=== PATIENT | female | born 1990 | race Two or more races ===

== ENCOUNTER 2021-05-09 21:02 | Emergency (ER) | payer MEDICAID ==
--- NOTE | 2021-05-09 23:00 | EDM.PDOC ---
ED HPI GENERAL MEDICAL PROBLEM - General Chief Complaint: General Stated Complaint: INTOXICATED Time Seen by Provider: 05/09/21 21:40 Source of Information: Reports: Patient History Limitations: Reports: Intoxication - History of Present Illness INITIAL COMMENTS - FREE TEXT/NARRATIVE: c/o alc intox pt comes in via EMS and is worried that her hgb is low, it had been 3 in the [facility] and she said she had a scope done her hgb is 10 tonight and she requested an iron tab she says she stopped alcohol for 11.5 months after inpt tx but started drinking again in November works for [employer], duties include dental receptionist work, not working tomorrow, lives with her 3 yo daughter, her mother is watching her daughter tonight - Related Data Allergies Allergy/AdvReac Type Severity Reaction Status Date / Time No Known Allergies Allergy Verified 05/09/21 21:21 Home Meds: Home Meds Ferrous Sulfate [Iron] 325 mg PO DAILY #30 tablet 05/09/21 [Rx] Potassium Chloride 20 meq PO BID #6 tablet.er 05/09/21 [Rx] Past Medical History Gastrointestinal History: Reports: GERD - Infectious Disease History Infectious Disease History: Reports: Hepatitis C Social & Family History - Tobacco Use Tobacco Use Status *Q: Current Every Day Tobacco User Years of Tobacco use: 1 Packs/Tins Daily: 0.2 - Caffeine Use Caffeine Use: Reports: None ED ROS GENERAL - Review of Systems Review Of Systems: See Below Constitutional: Reports: No Symptoms HEENT: Reports: No Symptoms Respiratory: Reports: No Symptoms Cardiovascular: Reports: No Symptoms Endocrine: Reports: No Symptoms GI/Abdominal: Reports: No Symptoms : Reports: No Symptoms Musculoskeletal: Reports: No Symptoms Skin: Reports: No Symptoms Neurological: Reports: No Symptoms Psychiatric: Reports: Anxiety Hematologic/Lymphatic: Reports: No Symptoms Immunologic: Reports: No Symptoms ED EXAM, GENERAL - Physical Exam Exam: See Below Exam Limited By: Other (sits up in bed, talks in complete sentences, answer questions appropriately, mildly anxious) General Appearance: Alert, Anxious Ears: Hearing Grossly Normal Nose: Normal Inspection Throat/Mouth: Normal Inspection, Normal Voice, No Airway Compromise Head: Atraumatic, Normocephalic Neck: Normal Inspection, Supple, Non-Tender, Full Range of Motion. No: Lymphadenopathy (R), Lymphadenopathy (L) Respiratory/Chest: No Respiratory Distress, Lungs Clear, Normal Breath Sounds, No Accessory Muscle Use, Chest Non-Tender Cardiovascular: Regular Rate, Rhythm, No Edema, No Gallop, No Murmur, No Rub GI/Abdominal: Soft, Non-Tender, No Distention Back Exam: Normal Inspection, Full Range of Motion, NT Extremities: Normal Inspection, Normal Range of Motion, Non-Tender, No Pedal Edema Neurological: Alert, Oriented, CN II-XII Intact, No Motor/Sensory Deficits Psychiatric: Anxious Skin Exam: Warm, Dry, Intact, Normal Color, No Rash Lymphatic: No Adenopathy Course - Vital Signs Last Recorded V/S: Last Vital Signs Temp 37.1 C 05/09/21 21:04 Pulse 97 05/09/21 21:04 Resp 18 05/09/21 21:04 BP 138/88 05/09/21 21:04 Pulse Ox 100 05/09/21 21:04 - Orders/Labs/Meds Labs: Laboratory Tests 05/09/21 05/09/21 05/09/21 Range/Units 21:30 21:30 21:30 WBC 4.0 (3.0-10.3) x10-3/uL RBC 3.53 L (3.60-5.20) x10(6)uL Hgb 10.7 L (11.4-15.5) g/dL Hct 33.4 L (34.2-48.2) % MCV 94.6 (76.7-100.5) fL MCH 30.2 (23.9-33.9) pg MCHC 31.9 (31.9-34.8) g/dL RDW 15.9 (12.3-16.5) % Plt Count 249 (151-488) x10(3)uL MPV 7.5 (7.1-12.4) fL Neut % (Auto) 42.5 (30.8-76.2) % Lymph % (Auto) 44.2 (18.4-52.1) % Jones % (Auto) 10.1 (4.4-15.7) % Eos % (Auto) 0.6 (0.6-8.1) % Baso % (Auto) 2.6 H (0.2-1.5) % Neut # (Auto) 1.7 (1.5-6.3) x10-3/uL Lymph # (Auto) 1.8 (1.0-4.4) x10-3/uL Jones # (Auto) 0.4 (0.3-1.0) x10-3/uL Eos # (Auto) 0.0 (0.0-0.8) x10-3/uL Baso # (Auto) 0.1 (0.0-0.1) x10-3/uL Sodium 139 (135-145) mmol/L Potassium 3.2 L (3.5-5.3) mmol/L Chloride 101 (100-110) mmol/L Carbon Dioxide 27 (21-32) mmol/L BUN 8 (7-18) mg/dL Creatinine 0.6 (0.55-1.02) mg/dL Est Cr Clr Drug Dosing TNP Estimated GFR (MDRD) > 60 (>60) BUN/Creatinine Ratio 13.3 (9-20) Glucose 85 (80-116) mg/dL Calcium 8.2 L (8.6-10.2) mg/dL Total Bilirubin 0.7 (0.1-1.3) mg/dL AST 577 H* (5-25) IU/L ALT 133 H (12-36) U/L Alkaline Phosphatase 349 H (56-112) IU/L Total Protein 7.9 (6.0-8.0) g/dL Albumin 3.7 (3.5-5.2) g/dL Globulin 4.2 g/dL Albumin/Globulin Ratio 0.9 Ethyl Alcohol 0.43 H* (<0.03) % - Re-Assessments/Exams Free Text/Narrative Re-Assessment/Exam: 05/09/21 23:08 pt requesting IVFs altho not indicated to lower alcohol level pt told her alc level is 430 and that her LFTs are markedly inc'd she does appear interested in tx Departure - Departure Time of Disposition: 22:55 Disposition: Home, Self-Care 01 Condition: Fair Clinical Impression: Acute alcohol intoxication, Normochromic normocytic anemia, Hypokalemia, Alcoholic hepatitis, Hepatitis C infection, Alcohol use disorder - Discharge Information *PRESCRIPTION DRUG MONITORING PROGRAM REVIEWED*: Not Applicable *COPY OF PRESCRIPTION DRUG MONITORING REPORT IN PATIENT DANIEL: Not Applicable Prescriptions: Ferrous Sulfate [Iron] 325 mg PO DAILY #30 tablet Potassium Chloride 20 meq PO BID #6 tablet.er Instructions: Alcohol Use Disorder, Alcoholic Liver Disease, Alcohol Intoxication, Hepatitis C, [id number] Referrals: PCP,None [Primary Care Provider] - Additional Instructions: To replace potassium, take potassium 20 meq 1 tab 2 times a day for 3 days. To build up iron stores, take iron sulfate 325 mg 1 tab daily for one month. Iron testing (e.g., ferritin) was not done tonight, which you should have your regular physician check. As both alcohol and hepatitis C virus can cause permanent damage to the liver, leading to liver failure, you should seek treatment for both. See your doctor in 2-3 days to discuss these issues further and to arrange further treatment. Sepsis Event Note (ED) - Evaluation Sepsis Screening Result: No Definite Risk - Focused Exam Vital Signs: Vital Signs Temp Pulse Resp BP Pulse Ox 05/09/21 21:04 37.1 C 97 18 138/88 100
== END 2021-05-09 23:10 | disposition home or self-care (01) ==
LOC: FB.ED 21:02
DX: K70.10 Alcoholic hepatitis without ascites (principal); K75.9 Inflammatory liver disease, unspecified; D64.9 Anemia, unspecified; F10.129 Alcohol abuse with intoxication, unspecified; E87.6 Hypokalemia; Z72.0 Tobacco use; Y90.5 Blood alcohol level of 100-119 mg/100 ml
CPT/HCPCS: 36415; 80053; 80307; 85025; 99284

== ENCOUNTER 2021-11-17 21:35 | Emergency (ER) | payer MEDICAID | END 2021-11-17 23:15 | disposition home or self-care (01) | LOC: FB.ED 21:35 | DX: F10.129 Alcohol abuse with intoxication, unspecified (principal); Y90.2 Blood alcohol level of 40-59 mg/100 ml | CPT/HCPCS: 36415; 80053; 80307; 83690; 85025; 99281; 99284 ==